=== PATIENT | female | born 1985 | race Two or more races ===

== ENCOUNTER 2020-03-25 09:38 | Emergency (ER) | payer OTHER ==
[~2020-03-25] VITALS: Ht 170.2 cm; Wt 72.6 kg
[~2020-03-25 09:38] MED LIST: DEPAKOTE ER500 MG; KLONOPIN0.5 MG/TAB
[2020-03-25] MEDS ORDERED: BENADRYL25 MG PO (10:13)
== END 2020-03-25 14:13 | disposition home or self-care (01) ==
LOC: ER 09:38
DX: O21.0 Mild hyperemesis gravidarum (principal); Z34.01 Encounter for supervision of normal first pregnancy, first trimester; Z03.818 Encounter for observation for suspected exposure to other biological agents ruled out

== ENCOUNTER 2020-07-30 18:04 | Outpatient (CLI) | payer OTHER ==
[~2020-07-30 18:04] MED LIST changes: +BENADRYL25 MG PO
[2020-07-30] MEDS ORDERED: PRENATAL + DHA1 EAC1 PO (19:47)
[2020-07-30] MEDS ORDERED: FOLIC ACID20 MG (19:47)
== END 2020-07-31 11:00 | disposition home or self-care (01) ==
LOC: OBS/DEL 18:04
PROVIDERS: ATTEND Specialist
DX: O9A.312 Physical abuse complicating pregnancy, second trimester (principal); Z3A.26 26 weeks gestation of pregnancy; Y07.12 Biological mother, perpetrator of maltreatment and neglect

== ENCOUNTER 2020-10-15 19:41 | Emergency (ER) | payer OTHER ==
[~2020-10-15] VITALS: Ht 170.2 cm; Wt 83.5 kg
[~2020-10-15 19:41] MED LIST changes: +FOLIC ACID20 MG; +PRENATAL + DHA1 EAC1 PO
== END 2020-10-16 01:05 | disposition home or self-care (01) ==
LOC: ER 19:41
DX: O26.893 Other specified pregnancy related conditions, third trimester (principal); S00.83XA Contusion of other part of head, initial encounter; Z34.83 Encounter for supervision of other normal pregnancy, third trimester; Y08.89XA Assault by other specified means, initial encounter; Y93.89 Activity, other specified; Y92.098 Other place in other non-institutional residence as the place of occurrence of the external cause; Y99.8 Other external cause status

== ENCOUNTER 2020-10-20 01:52 | Outpatient (CLI) | payer OTHER | END 2020-10-20 09:27 | disposition home or self-care (01) | LOC: OBS/DEL 01:52 | PROVIDERS: ATTEND Specialist | DX: O99.343 Other mental disorders complicating pregnancy, third trimester (principal); F41.1 Generalized anxiety disorder; F43.0 Acute stress reaction; F41.0 Panic disorder [episodic paroxysmal anxiety]; Z91.410 Personal history of adult physical and sexual abuse; Z3A.38 38 weeks gestation of pregnancy ==

== ENCOUNTER 2020-10-20 11:48 | Inpatient (IN) | payer OTHER ==
[~2020-10-20] VITALS: Ht 170.2 cm; Wt 86.6 kg
[2020-11-24] MEDS ORDERED: ACETAMINOPHEN650 M2 (08:56)
== END 2020-11-07 14:23 | disposition home or self-care (01) | DRG 807 ==
LOC: OB/GYN 11-02 13:45 → LDR 11-05 07:24 → OB/GYN 11-05 14:51
PROVIDERS: ADMIT Specialist; ATTEND Specialist
PROC: 10E0XZZ Delivery of Products of Conception, External Approach (ICD-10-PCS; principal; 2020-11-05)
PROC: 0UQMXZZ Repair Vulva, External Approach (ICD-10-PCS; 2020-11-05)
PROC: 10907ZC Drainage of Amniotic Fluid, Therapeutic from Products of Conception, Via Natural or Artificial Opening (ICD-10-PCS; 2020-11-05)
PROC: 3E033VJ Introduction of Other Hormone into Peripheral Vein, Percutaneous Approach (ICD-10-PCS; 2020-11-05)
PROC: 3E0P7VZ Introduction of Hormone into Female Reproductive, Via Natural or Artificial Opening (ICD-10-PCS; 2020-11-05)
PROC: 4A1HXFZ Monitoring of Products of Conception, Cardiac Rhythm, External Approach (ICD-10-PCS; 2020-11-05)
DX: O48.0 Post-term pregnancy (principal); O70.0 First degree perineal laceration during delivery; Z37.0 Single live birth; Z3A.40 40 weeks gestation of pregnancy

== ENCOUNTER → 2020-11-10 | Emergency (ER) | payer OTHER ==
[~2020-11-10] VITALS: Ht 170.2 cm; Wt 83.5 kg
[~2020-11-10] MED LIST changes: +ACETAMINOPHEN650 M2
== END ==
LOC: ER 18:32
DX: O99.345 Other mental disorders complicating the puerperium (principal); F31.9 Bipolar disorder, unspecified

== ENCOUNTER 2024-06-11 20:28 | Emergency (ER) | payer OTHER ==
[~2024-06-11] VITALS: Ht 167.6 cm; Wt 65.8 kg
[2024-06-11] MEDS ORDERED: ELVITEG/COB/EMTRI/TENOFO DISOP 1 UDTAB TABLET PO ONE (22:15)
[2024-06-11] MEDS ORDERED: CEFTRIAXONE SODIUM 2,000 MG VIAL IV ONE (22:15)
[2024-06-11] MEDS ORDERED: FAMOtidine 10 MG/ML (4ML VIAL) IV PUSH ONE (22:15)
[2024-06-12] MEDS ORDERED: CEFTRIAXONE SODIUM 2,000 MG VIAL ONE (00:44)
[2024-06-12] MEDS ORDERED: ELVITEG/COB/EMTRI/TENOFO DISOP 1 UDTAB TABLET PO ONE (00:44)
[2024-06-12] MEDS ORDERED: FAMOTIDINE/PF 20 MG/2 ML VIAL ONE (00:45)
[2024-06-12 01:06] LABS: HEMATOCRIT 35.6 % (36.0-45.00); HEMOGLOBIN 12.1 g/dL (12.0-15.00); MEAN CELL VOLUME 91.5 fL (80.00-100.00); MEAN CORPUSCULAR HEMOGLOBIN 31.1 pg (27.00-32.0); PLATELET COUNT 332 K/uL (150-450); RED BLOOD COUNT 3.89 M/uL (4.00-6.00); RED CELL DISTRIBUTION WIDTH 13.3 % (11.5-14.5)
[2024-06-12 01:09] LABS: INR 1.01; PARTIAL THROMBOPLASTIN TIME 26.2 SECONDS (22.0-34.0)
[2024-06-12 01:20] LABS: ALBUMIN 3.5 gm/dL (3.4-5.0); BILIRUBIN TOTAL 0.25 mg/dL (0.3-1.2); CALCIUM 8.7 mg/dL (8.5-10.1); CREATININE SERUM 0.63 mg/dL (0.55-1.02); GFR 105.76; GLOBULINA 3.5 G/DL (2.4-3.5); POTASSIUM 3.81 mEq/L (3.5-5.1)
[2024-06-12 02:05] LABS: PH,URINE 5.5 (5.0-8.0); URINE APPEARANCE Clear; URINE BILIRRUBIN Negative (NEGATIVE); URINE BLOOD Negative; URINE COLOR Yellow; URINE GLUCOSE Negative (NEGATIVE); URINE KETONE Negative (NEGATIVE); URINE LEUKOCYTE Small; URINE NITRATE Negative; URINE PROTEIN Negative (NEGATIVE); URINE UROBILINOGEN 0.2 E.U./dl
[2024-06-12 02:08] LABS: URINE BACTERIA 2687.6 uL (0.0-1933); URINE EPITHELIAL CELLS 29.4 uL (0.0-38.8); URINE RBC 8.8 uL (0.0-20.8); URINE WBC 230.6 uL (0.0-23.2)
[2024-06-12 02:34] LABS: COCAINE POSITIVE (NEGATIVE); METHADONE NEGATIVE (NEGATIVE); OPIATES NEGATIVE (NEGATIVE); THC ( Cannabinoids) NEGATIVE (NEGATIVE)
== END 2024-06-12 10:27 | disposition home or self-care (01) ==
LOC: ER 20:31
PROVIDERS: General Practice
DX: T76.21XA Adult sexual abuse, suspected, initial encounter (principal); F41.8 Other specified anxiety disorders